=== PATIENT | male | born 1930 | race African-American/Black ===

== ENCOUNTER 2019-11-24 17:26 | Emergency (ER) | payer OTHER, BC ==
--- NOTE | 2019-11-24 18:05 | ER Document Report ---
ED General - General TRAVEL OUTSIDE OF THE [place] IN LAST 30 DAYS: No <JULIAN ALEXANDER - Last Filed: 11/24/19 19:54> <SAWYER REYEZ - Last Filed: 11/25/19 06:05> <RALPH VARELA - Last Filed: 11/25/19 11:52> - General Chief Complaint: Shortness Of Breath Stated Complaint: DIFFICULTY BREATHING Time Seen by Provider: 11/24/19 17:40 - HPI Notes: Patient is an 89-year-old male who presents emergency department for evaluation. He is a relatively poor historian. He states he was lying down and he became short of breath, nauseated. He fell to the ground. He had a near syncopal episode attempting to go to the bathroom. He states he had some chest pressure just prior to this near syncopal episode. This pain has resolved. He really cannot describe it to me any further. He states his breathing is improved as well. He denies any associated palpitations, vomiting. He states he has been taking his medications as prescribed. He states when he fell he did not hit his head. He denies any loss of consciousness. (JULIAN ALEXANDER) - Related Data Allergies/Adverse Reactions: No Known Allergies Allergy (Verified 11/24/19 17:39) Past Medical History - General Information source: Patient - Social History Smoking Status: Former Smoker Chew tobacco use (# tins/day): No Frequency of alcohol use: None Drug Abuse: None Family History: Reviewed & Not Pertinent Patient has suicidal ideation: No Patient has homicidal ideation: No - Past Medical History Cardiac Medical History: Reports: Hx Atrial Fibrillation, Hx Hypercholesterolemia, Hx Hypertension Pulmonary Medical History: Reports: Hx COPD Endocrine Medical History: Reports: Hx Diabetes Mellitus Type 2 Renal/ Medical History: Reports: Hx Benign Prostatic Hyperplasia Past Surgical History: Reports: Hx Appendectomy - Immunizations Immunizations up to date: Yes Hx Diphtheria, Pertussis, Tetanus Vaccination: Yes <JULIAN ALEXANDER - Last Filed: 11/24/19 19:54> Review of Systems - Review of Systems Constitutional: See HPI EENT: No symptoms reported Cardiovascular: See HPI Respiratory: See HPI Gastrointestinal: No symptoms reported Genitourinary: No symptoms reported Musculoskeletal: No symptoms reported Skin: No symptoms reported Neurological/Psychological: No symptoms reported <JULIAN ALEXANDER - Last Filed: 11/24/19 19:54> Physical Exam <JULIAN ALEXANDER - Last Filed: 11/24/19 19:54> - Vital signs Vitals: Temp Resp BP Pulse Ox 97.6 F 18 121/82 99 11/24/19 17:43 11/24/19 17:43 11/24/19 17:43 11/24/19 17:43 - Notes Notes: This is an 89-year-old male who appears his stated age in no acute distress. He is 3 L of oxygen per nasal cannula in place, is 97%. No accessory muscle use, not tachypneic. Vital signs reviewed, please refer to chart. Head is normocephalic, atraumatic. Pupils equal round, reactive to light. Neck is supple without meningismus. Heart is irregularly irregular. Lungs reveal mild rales in the bases. Abdomen is soft, nontender, normoactive bowel sounds throughout. Extremities without cyanosis, clubbing. Posterior calves are nontender. Peripheral pulses are equal. Skin is warm and dry. Patient is awake, alert, neurological exam is nonfocal. (CHERELLE ALEXANDERSOLOMON Perez) Course - Laboratory Result Diagrams: 11/24/19 18:15 11/24/19 18:15 - Diagnostic Test Radiology reviewed: Image reviewed, Reports reviewed - Transfer of Care Care transferred to following provider: Dr. Reyez <CHERELLE ALEXANDERSOLOMON Chris - Last Filed: 11/24/19 19:54> - Laboratory Result Diagrams: 11/25/19 02:37 11/24/19 18:15 <SAWYER REYEZ - Last Filed: 11/25/19 06:05> - Laboratory Result Diagrams: 11/25/19 02:37 11/24/19 18:15 <RALPH VARELA - Last Filed: 11/25/19 11:52> - Re-evaluation Re-evalutation: 11/24/19 18:55 Patient presents emergency department for evaluation. He developed shortness of breath, chest tightness, and nausea all at once. EMS was called when he had a near syncopal event. Upon arrival, patient was placed in the bed. During the course of his work-up, the patient had a large episode of emesis. He was medicated with Zofran. We will continue to monitor. 12/31/19 19:43 Patient continues to have emesis, despite medication with Zofran. He states he still feels short of breath. His EKG does show some changes when compared to prior study. He is a poor historian. I will contact internal medicine for possible admission. 11/24/19 19:47 Please note the earlier, with his early episode of emesis, I had been notified that the patient was possibly having seizure activity. I ordered the Ativan be pulled from the Pyxis. Upon evaluating the patient it was noted that he was not actually seizing, but was not tolerating vomiting well. Please note that Ativan was never administered. Patient's first troponin was negative. He continues to feel slightly short of breath. I spoke with Dr. Zarate. He was concerned about his continued nausea. He asked that a lipase to be added and a second troponin be added as well. These labs were ordered. At this time, care of this patient will be turned over to Dr. Reyez. Dr. Reyez asked that his EKG be repeated, and this order was placed as well. (JULIAN ALEXANDER) 11/25/19 04:40 Addendum given this patient at 830. Plan at that point was to repeat his troponin and lipase. Patient continued to have intermittent episodes of vomiting despite several doses of vomiting. I went in to reevaluate the patient and reviewed the chart. Patient reports he had a brief episode of tightness in his chest earlier today with some shortness of breath that resolved. Generalized weakness and fell to his knees with did not actually pass out. Following this he started having some abdominal pain nausea and vomiting said multiple episodes of vomiting since then. Said no fevers no diarrhea and no blood in the stools. Past medical history he has a history of diabetes and A. fib is on Xarelto denies any history of retention or no history of hypertension alcohol abuse no history of liver disease Reports his last dose of Xarelto was yesterday morning His exam his vital signs are noted no acute distress he is slightly dry mucous membranes chest is clear. Heart irregularly irregular with controlled ventricular rate. Abdomen reveals decreased breath sounds he slightly distended with some minimal diffuse tenderness throughout. Laboratory studies reviewed. LFTs were noted. Is got low platelets however we have no old laboratory studies on him EKG shows atrial fibrillation with some nonspecific ST wave changes repeat is unchanged CT is contacted by radiology regarding the CT. They report moderate homogeneous fluid throughout which may be a subacute hemorrhage or complex ascites as well as some patchy inflammation around the gallbladder ED patient has remained stable he was given IV fluids. 1 drop in blood pressure that responded came up to minutes later on repeat. He has been controlled. A Dennison catheter was inserted and he is got good urine output. Cultures were obtained he was started on Merrem empirically Also did discuss case with general surgery was seen the patient. He reviewed the CT and did not feel that patient had significant ascites felt the patient probably needed a medical admission for further evaluation. He did discuss case with hospitalist who felt that in light of the patient's age ascites and und erlying medical problems to be transferred to higher level of care working in interventional radiology and evaluated by GI I did talk to family about this. Recommended we transfer the patient to [facility] however they requested patient be transferred to [facility]. I contacted the transfer center there. They advised me they have no beds and place him on the list. Family was advised about this. They then requested fighting. Contacted the transfer center there accepted the patient (SAWYER REYEZ) - Vital Signs Vital signs: Temp Pulse Resp BP Pulse Ox 98.1 F 73 20 106/67 98 11/25/19 09:31 11/24/19 18:03 11/25/19 11:00 11/25/19 11:00 11/25/19 11:00 - Laboratory Laboratory results interpreted by me: 11/24/19 11/24/19 11/24/19 18:15 18:15 18:15 RBC 3.53 L Hgb 11.1 L Hct 33.1 L RDW 14.1 H Plt Count 148 L Lymph % (Auto) Absolute Neuts (auto) Seg Neutrophils % PT Creatinine 1.35 H Est GFR (MDRD) Non-Af 50 L Glucose 132 H AST 239 H NT-Pro-B Natriuret Pep 3330 H Total Protein 6.1 L Urine Protein Urine Blood Urine Urobilinogen 11/24/19 11/25/19 11/25/19 23:49 02:37 02:37 RBC 3.42 L Hgb 10.7 L Hct 31.9 L RDW 14.2 H Plt Count 148 L Lymph % (Auto) 9.6 L Absolute Neuts (auto) 8.4 H Seg Neutrophils % 83.6 H PT 16.5 H Creatinine Est GFR (MDRD) Non-Af Glucose AST NT-Pro-B Natriuret Pep Total Protein Urine Protein 100 H Urine Blood SMALL H Urine Urobilinogen 2.0 H - Diagnostic Test Radiology results interpreted by me: 11/24/19 18:55 Chest X-Ray 11/24/19 17:36 IMPRESSION: NO ACUTE FINDINGS. (JULIAN ALEXANDER) - EKG Interpretation by Me Additional EKG results interpreted by me: 11/24/19 18:57 Atrial fibrillation with a rate of 77 bpm. Left axis deviation. IVCD. Anterolateral T wave inversions, diffuse T wave flattening, concerning for possible ischemia. Positive changes from prior study performed in March 2015. (JULIAN ALEXANDER) Critical Care Note - Critical Care Note Total time excluding time spent on procedures (mins): 35 <SAWYER REYEZ - Last Filed: 11/25/19 06:05> Discharge <JULIAN ALEXANDER - Last Filed: 11/24/19 19:54> <SAWYER REYEZ - Last Filed: 11/25/19 06:05> <RALPH VARELA - Last Filed: 11/25/19 11:52> - Discharge Clinical Impression: Near syncope Chest pain Qualifiers: Chest pain type: unspecified Qualified Code(s): R07.9 - Chest pain, unspecified Nausea and vomiting Qualifiers: Vomiting type: unspecified Dyspnea Qualifiers: Dyspnea type: shortness of breath Qualified Code(s): R06.02 - Shortness of breath Condition: Stable Disposition: [facility]
--- NOTE | 2019-11-24 18:20 | RADIOLOGY REPORT (SQ) ---
EXAM DESCRIPTION: CHEST SINGLE VIEW COMPLETED DATE/TIME: 11/24/2019 6:02 pm REASON FOR STUDY: sob COMPARISON: 03/25/2015 TECHNIQUE: Single frontal radiographic view of the chest acquired. NUMBER OF VIEWS: One view. LIMITATIONS: None. FINDINGS: LUNGS AND PLEURA: No pneumothorax. Similar chronic interstitial changes -basilar scarring . No consolidation or pleural effusion. MEDIASTINUM AND HILAR STRUCTURES: Stable. HEART AND VASCULAR STRUCTURES: Stable. BONES: No acute findings. HARDWARE: None in the chest. OTHER: No other significant finding. IMPRESSION: NO ACUTE FINDINGS. TECHNICAL DOCUMENTATION: JOB ID: [id number] [employer]- All Rights Reserved Reading location - IP/workstation name: [email or web address]
[2019-11-24] MEDS ORDERED: LORAZEPAM INJ 2 MG/1 ML VIAL IV ONE (18:40)
[2019-11-24 18:41] LABS: ABSOLUTE BASOPHILS # (AUTO) 0.1 10^3/uL (0.0-0.2); ABSOLUTE EOSINOPHILS # (AUTO) 0.1 10^3/uL (0.0-0.6); ABSOLUTE MONOCYTES (AUTO) 0.6 10^3/uL (0.1-1.4); ABSOLUTE NEUT (AUTO) 3.5 10^3/uL (1.7-8.2); BASOPHILS % (AUTO) 1.1 % (0-2); EOSINOPHILS % (AUTO) 1.7 % (0-6); HEMATOCRIT 33.1 % (37.9-51.0); HEMOGLOBIN 11.1 g/dL (13.5-17.0); LYMPHOCYTES % (AUTO) 40.5 % (13-45); MEAN CORPUSCULAR HEMOGLOBIN 31.5 pg (27.0-33.4); MEAN CORPUSCULAR HGB CONC 33.6 g/dL (32.0-36.0); MEAN CORPUSCULAR VOLUME 94 fl (80-97); MONOCYTES % (AUTO) 8.7 % (3-13); PLATELET COUNT 148 10^3/uL (150-450); RED BLOOD COUNT 3.53 10^6/uL (4.35-5.55); RED CELL DISTRIBUTION WIDTH 14.1 % (11.5-14.0); TOTAL CELLS COUNTED % (AUTO) 100 %; WHITE BLOOD COUNT 7.3 10^3/uL (4.0-10.5)
[2019-11-24] MEDS ORDERED: ONDANSETRON HCL INJ/PF 4 MG/2 ML SDV IV ONE ×3 (18:48→20:54)
[2019-11-24 19:07] LABS: ALBUMIN 3.5 g/dL (3.5-5.0); ALKALINE PHOSPHATASE 45 U/L (38-126); ANION GAP 11 (5-19); ASPARTATE AMINO TRANSFERASE 239 U/L (17-59); BILIRUBIN,DIRECT 0.3 mg/dL (0.0-0.4); BILIRUBIN,TOTAL 0.5 mg/dL (0.2-1.3); BLOOD UREA NITROGEN 15 mg/dL (7-20); CALCIUM 9.3 mg/dL (8.4-10.2); CARBON DIOXIDE 26 mmol/L (22-30); CHLORIDE 104 mmol/L (98-107); GLUCOSE 132 mg/dL (75-110); POTASSIUM 3.6 mmol/L (3.6-5.0); TOTAL PROTEIN 6.1 g/dL (6.3-8.2)
--- NOTE | 2019-11-24 19:17 | EKG REPORT ---
SEVERITY:- ABNORMAL ECG - ATRIAL FIBRILLATION LAD, CONSIDER LEFT ANTERIOR FASCICULAR BLOCK BORDERLINE R WAVE PROGRESSION, ANTERIOR LEADS NONSPECIFIC T ABNORMALITIES, DIFFUSE LEADS : Confirmed by: Nixon Edmond MD 24-Nov-2019 19:17:12
[2019-11-24 19:20] LABS: NT PRO BNP 3330 pg/mL (<450); TROPONIN I < 0.012 ng/mL
[2019-11-24 20:43] LABS: A TYPE INFLUENZA AG POSITIVE (NEGATIVE); B INFLUENZA AG NEGATIVE (NEGATIVE)
[2019-11-24] MEDS ORDERED: NORMAL SALINE 500 ML IV ONE (20:56)
[2019-11-24] MEDS ORDERED: NORMAL SALINE 1000 ML 1,000 ML IV ONE (20:58)
--- NOTE | 2019-11-24 21:19 | EKG REPORT ---
SEVERITY:- ABNORMAL ECG - ATRIAL FIBRILLATION LAD, CONSIDER LEFT ANTERIOR FASCICULAR BLOCK CONSIDER ANTEROSEPTAL INFARCT NONSPECIFIC T ABNORMALITIES, LATERAL LEADS BORDERLINE PROLONGED QT INTERVAL : Confirmed by: Nixon Edmond MD 24-Nov-2019 21:18:58
[2019-11-24] MEDS ORDERED: OSELTAMIVIR PHOSPHATE 75 MG CAPSULE PO ONE (21:56)
[2019-11-25] MEDS ORDERED: NORMAL SALINE 500 ML IV ONE ×2 (00:13→05:29)
[2019-11-25] MEDS ORDERED: PROMETHAZINE HCL INJ 25 MG/1 ML VIAL IV ONE (00:14)
[2019-11-25 00:21] LABS: APPEARANCE,URINE CLOUDY; BILIRUBIN,URINE NEGATIVE (NEGATIVE); COLOR,URINE AMBER; GLUCOSE, URINE NEGATIVE (NEGATIVE); KETONES,URINE NEGATIVE (NEGATIVE); LEUKOCYTE ESTERASE,URINE NEGATIVE (NEGATIVE); NITRITE,URINE NEGATIVE (NEGATIVE); PROTEIN,URINE 100 mg/dL (NEGATIVE); URINE SPECIFIC GRAVITY 1.027
--- NOTE | 2019-11-25 01:56 | RADIOLOGY REPORT (SQ) ---
EXAM DESCRIPTION: CT ABDOMEN PELVIS WITH IV CONTRAST COMPLETED DATE/TME: 11/25/2019 00:14 CLINICAL HISTORY: 89 years Male, Abdominal pain Comparison:Mar 25 2015 Technique: Pre and post IV contrast. Coronal and sagittal reformat. This exam was performed according to our departmental dose-optimization program, which includes automated exposure control, adjustment of the mA and/or kV according to patient size and/or use of iterative reconstruction technique. [facility]: Dose Right [facility]: CareDose [facility]: Dose Right [facility]: Teradose 4D [facility]: Silentium LIMITATIONS: Arm position. Findings: Moderate homogeneous free fluid, 27-HU throughout the abdomen may indicate subacute hemorrhage or complex ascites including under the right hemidiaphragm, left paracolic space, and anterior lower abdomen. Coronary arterial calcification. Atherosclerotic vascular disease. Renal arterial calcification. Degenerative disc disease. Grade I L4 anterolisthesis. Moderate bilateral inguinal fat only hernia. Stool retention. Moderate subpleural cyst partially imaged. Atelectasis-scar. Colonic diverticulosis. 2.8 x 2.8 cm infrarenal abdominal aortic aneurysm. Recommend follow-up every three years. Moderate fat inflammation at the anteromedial aspect of the gallbladder, nonspecific. Differential etiologies include cholecystitis. No pneumoperitoneum. No evidence of appendicitis. Appendix not definitively discerned/appendectomy. No bowel obstruction. No hydronephrosis or hydroureter. No renal/ureteral stone. No evidence of abdominal aortic aneurysm. Inferior thorax, liver, pancreas, spleen, adrenals, renal system, gastrointestinal tract, pelvic organs, lymphatics, vasculature, and musculoskeleton appear otherwise unremarkable. IMPRESSION: 1. Moderate homogeneous free fluid, 27-HU throughout the abdomen may indicate subacute hemorrhage or complex ascites including under the right hemidiaphragm, left paracolic space, and anterior lower abdomen. 2. 2.8 x 2.8 cm infrarenal abdominal aortic aneurysm. Recommend follow-up every three years. 3. Moderate fat inflammation at the anteromedial aspect of the gallbladder, nonspecific. Differential etiologies include cholecystitis.
[2019-11-25] MEDS ORDERED: MEROPENEM 1 GM VIAL IV ONE (02:14)
[2019-11-25 02:57] LABS: ABSOLUTE BASOPHILS # (AUTO) 0.1 10^3/uL (0.0-0.2); ABSOLUTE MONOCYTES (AUTO) 0.6 10^3/uL (0.1-1.4); ABSOLUTE NEUT (AUTO) 8.4 10^3/uL (1.7-8.2); BASOPHILS % (AUTO) 0.6 % (0-2); EOSINOPHILS % (AUTO) 0.1 % (0-6); HEMATOCRIT 31.9 % (37.9-51.0); HEMOGLOBIN 10.7 g/dL (13.5-17.0); LYMPHOCYTES % (AUTO) 9.6 % (13-45); MEAN CORPUSCULAR HEMOGLOBIN 31.2 pg (27.0-33.4); MEAN CORPUSCULAR HGB CONC 33.5 g/dL (32.0-36.0); MEAN CORPUSCULAR VOLUME 93 fl (80-97); MONOCYTES % (AUTO) 6.1 % (3-13); PLATELET COUNT 148 10^3/uL (150-450); RED BLOOD COUNT 3.42 10^6/uL (4.35-5.55); RED CELL DISTRIBUTION WIDTH 14.2 % (11.5-14.0); SEGMENTED NEUTROPHILS % (AUTO) 83.6 % (42-78); TOTAL CELLS COUNTED % (AUTO) 100 %; WHITE BLOOD COUNT 10.1 10^3/uL (4.0-10.5)
[2019-11-25 03:16] LABS: INTERNATIONAL RATION (INR) 1.32; PROTHROMBIN TIME 16.5 SEC (11.4-15.4)
--- NOTE | 2019-11-25 08:21 | PDOC CONSULTATION ---
Consultation Consult Date: 11/25/19 Attending physician:: SAWYER REYEZ Provider Consulted: MARIA ANTONIA SOTO History of Present Illness Admission Date/PCP: an 89-year-old male who presents emergency department for evaluation. He is a relatively poor historian. He states he was lying down and he became short of breath, nauseated. He fell to the ground. He had a near syncopal episode attempting to go to the bathroom. He states he had some chest pressure just prior to this near syncopal episode. This pain has resolved. He really cannot describe it to me any further. He states his breathing is improved as well. He denies any associated palpitations, vomiting. He states he has been taking his medications as prescribed. He states when he fell he did not hit his head. He denies any loss of consciousness. Upon further questioning the family they state the patient did not fall to the ground. He has been in his usual state of health until he developed the chest pressure and the nausea vomiting. CT scan was obtained emergency room physician and I was called because of some free fluid noted above the right lobe of the liver as well as in thein the left paracolic gutter. History of Present Illness: PETRESON FARIAS is a 89 year old male Past Medical History Cardiac Medical History: Reports: Atrial Fibrillation, Hyperlipidema, Hypertension Pulmonary Medical History: Reports: Chronic Obstructive Pulmonary Disease (COPD) Endocrine Medical History: Reports: Diabetes Mellitus Type 2 Past Surgical History Past Surgical History: Reports: Appendectomy Social History Smoking Status: Former Smoker Electronic Cigarette use?: No Family History Family History: Reviewed & Not Pertinent Parental Family History Reviewed: No Children Family History Reviewed: NA Sibling(s) Family History Reviewed.: NA Medication/Allergy Home Medications: Albuterol Sulfate [Proair HFA Inhalation Aerosol 8.5 gm MDI] 1 puff PO DAILY 11/24/19 Apixaban [Eliquis 5 mg Tablet] 5 mg PO BID 11/24/19 Finasteride [Proscar 5 mg Tablet] 5 mg PO DAILY 11/24/19 Meloxicam [Mobic] 7.5 mg PO DAILY 11/24/19 Metformin HCl [Metformin ER Gastric] 500 mg PO QHS 11/24/19 Allergies/Adverse Reactions: No Known Allergies Allergy (Verified 11/24/19 17:39) Review of Systems Constitutional: PRESENT: fatigue Ears: ABSENT: hearing changes Nose, Mouth, and Throat: ABSENT: as per HPI, headache(s), mouth pain, sore throat, vertigo, other Breasts: ABSENT: as per HPI, other Cardiovascular: PRESENT: dyspnea on exertion Respiratory: ABSENT: as per HPI, cough, dyspnea, hemoptysis, sputum, other Gastrointestinal: PRESENT: abdominal pain, constipation, nausea, vomiting Genitourinary: ABSENT: as per HPI, difficulty urinating, dysuria, hematuria, no cturia, other Musculoskeletal: ABSENT: as per HPI, back pain, deformity, joint swelling, muscle weakness, other Integumentary: ABSENT: as per HPI, diaphoresis, erythema, lesions, pruritus, rash, wounds, other Neurological: ABSENT: as per HPI, abnormal gait, abnormal movements, abnormal speech, confusion, convulsions, dizziness, focal weakness, frequent falls, lack of coordination, memory loss, numbness, paresthesias, restless legs, syncope, tingling, tremor(s), vertigo, weakness, other Psychiatric: ABSENT: as per HPI, anxiety, depression, hallucinations, homidical ideation, suicidal ideation, other Endocrine: ABSENT: as per HPI, cold intolerance, flushing, heat intolerance, menstrual abnormalities, polydipsia, polyphagia, polyuria, other Hematologic/Lymphatic: ABSENT: as per HPI, easy bleeding, easy bruising, lymphadenopathy, other Allergic/Immunologic: ABSENT: as per HPI, seasonal rhinorrhea, other Physical Exam Vital Signs: Temp Pulse Resp BP Pulse Ox 97.6 F 73 22 H 104/73 100 11/24/19 18:03 11/24/19 18:03 11/25/19 04:21 11/25/19 04:21 11/25/19 04:21 Intake & Output 11/24/19 11/25/19 11/26/19 06:59 06:59 06:59 Intake Total 1000 1000 Balance 1000 1000 Weight 100.5 kg General appearance: PRESENT: mild distress Head exam: PRESENT: atraumatic Eye exam: PRESENT: EOMI Ear exam: PRESENT: normal external ear exam Mouth exam: PRESENT: dry mucosa Teeth exam: PRESENT: poor dentation Neck exam: PRESENT: full ROM Respiratory exam: PRESENT: clear to auscultation georgette, unlabored Cardiovascular exam: PRESENT: irregular rhythm, tachycardia, other Pulses: PRESENT: normal femoral pulses, normal dorsalis pedis pul Vascular exam: PRESENT: normal capillary refill Breast: PRESENT: Normal - Abdomen is softly distended with minimal generalized tenderness to palpation there is no rebound tenderness no peritoneal irritation GI/Abdominal exam: PRESENT: other - Abdomen is obese softly distended minimal tenderness in all 4 quadrants to palpation but no rebound tenderness or peritonitis Rectal exam: PRESENT: deferred Extremities exam: PRESENT: +2 edema Musculoskeletal exam: PRESENT: full ROM Neurological exam: PRESENT: alert, awake, oriented to person, oriented to place Psychiatric exam: PRESENT: appropriate affect Skin exam: PRESENT: dry Results Laboratory Results: 11/25/19 02:37 11/24/19 18:15 11/24/19 11/24/19 11/24/19 18:15 18:15 18:15 WBC 7.3 RBC 3.53 L Hgb 11.1 L Hct 33.1 L MCV 94 MCH 31.5 MCHC 33.6 RDW 14.1 H Plt Count 148 L Seg Neutrophils % 48.0 Sodium 140.9 Potassium 3.6 Chloride 104 Carbon Dioxide 26 Anion Gap 11 BUN 15 Creatinine 1.35 H Est GFR ( Amer) > 60 Glucose 132 H Calcium 9.3 Total Bilirubin 0.5 AST 239 H Alkaline Phosphatase 45 Total Protein 6.1 L Albumin 3.5 Lipase 91.9 Urine Color Urine Appearance Urine pH Ur Specific [place] Urine Protein Urine Glucose (UA) Urine Ketones Urine Blood Urine Nitrite Ur Leukocyte Esterase Urine WBC (Auto) Urine RBC (Auto) 11/24/19 11/25/19 23:49 02:37 WBC 10.1 RBC 3.42 L Hgb 10.7 L Hct 31.9 L MCV 93 MCH 31.2 MCHC 33.5 RDW 14.2 H Plt Count 148 L Seg Neutrophils % 83.6 H Sodium Potassium Chloride Carbon Dioxide Anion Gap BUN Creatinine Est GFR ( Amer) Glucose Calcium Total Bilirubin AST Alkaline Phosphatase Total Protein Albumin Lipase Urine Color COTY Urine Appearance CLOUDY Urine pH 5.0 Ur Specific [place] 1.027 Urine Protein 100 H Urine Glucose (UA) NEGATIVE Urine Ketones NEGATIVE Urine Blood SMALL H Urine Nitrite NEGATIVE Ur Leukocyte Esterase NEGATIVE Urine WBC (Auto) 5 Urine RBC (Auto) 4 11/24/19 11/24/19 18:15 21:22 Troponin I < 0.012 0.012 NT-Pro-B Natriuret Pep 3330 H Impressions: Chest X-Ray 11/24/19 17:36 IMPRESSION: NO ACUTE FINDINGS. Abdomen/Pelvis CT 11/25/19 00:14 IMPRESSION: 1. Moderate homogeneous free fluid, 27-HU throughout the abdomen may indicate subacute hemorrhage or complex ascites including under the right hemidiaphragm, left paracolic space, and anterior lower abdomen. 2. 2.8 x 2.8 cm infrarenal abdominal aortic aneurysm. Recommend follow-up every three years. 3. Moderate fat inflammation at the anteromedial aspect of the gallbladder, nonspecific. Differential etiologies include cholecystitis. Assessment & Plan - Diagnosis (1) Nausea and vomiting Qualifiers: Vomiting type: unspecified - Plan Summary Plan Summary: Impression 89-year-old male presents to the emergency room with increased nausea and vomiting weakness and had a syncopal episode. CT scan was obtained which showed some free fluid above the right lobe of the liver as well as in the left paracolic gutter and some questionable stranding around the gallbladder. As well as a large amount of stool in the rectal vault and descending colon consistent with chronic constipation Patient is on Eliquis for atrial fibrillation as well as metformin and meloxicam. Currently currently patient is stable his abdominal pain is minimal after a large bowel movement in the emergency room. Because of his atrial fibrillation and the fact that he is on Eliquis plans are being made for his transfer to a tertiary center. Diagnostic possibilities include cholecystitis however there are no gallstones and no significant thickening on CT scan of the gallbladder Hemoperitoneum because of the fact that he has been on Eliquis and had some significant retching and vomiting. Recommendations This point patient should be admitted to the hospital for observation would trend his hemoglobin and hematocrit He does not have an acute abdomen at this point does not require immediate surgical exploration. Patient should have an abdominal ultrasound to rule out gallstones versus pericholecystic thickening consider HIDA scan. If vomiting continues would consider NG suction. Internal medicine has consulted with the emergency room and suggested transfer to the tertiary care center. If this does not occur please reconsult surgery as necessary
--- NOTE | 2019-11-25 09:36 | RADIOLOGY REPORT (SQ) ---
EXAM DESCRIPTION: U/S ABDOMEN COMPLETE W/DOPPLER COMPLETED DATE/TIME: 11/25/2019 9:22 am REASON FOR STUDY: possible cholecystitis, complex fluid on CT COMPARISON: CT dated 11/25/2019. TECHNIQUE: Dynamic and static grayscale images acquired of the abdomen and recorded on PACS. Additio nal selected color Doppler and spectral images recorded. Note: Exam does not meet criteria for a complete doppler/duplex scan LIMITATIONS: Study limited due to acoustical interference from fat or from air in the bowel. FINDINGS: PANCREAS: Poorly seen secondary to acoustical interference from fat or from air in the bow el. No visualized masses. Duct normal caliber as seen. LIVER: Echotexture is coarse with increased echogenicity consistent with fatty infiltration. LIVER VASCULATURE: Normal directional flow of the main portal vein and hepatic veins. GALLBLADDER: No stones. Normal wall thickness. Trace pericholecystic fluid. ULTRASOUND-DETECTED LEE'S SIGN: Negative. INTRAHEPATIC DUCTS AND COMMON DUCT: CBD and intrahepatic ducts normal caliber. No filling defects. INFERIOR VENA CAVA: Normal flow. AORTA: No aneurysm. RIGHT KIDNEY: Normal size. Normal echogenicity. No solid or suspicious masses. No hydronephrosis. No calcifications. LEFT KIDNEY: Normal size. Normal echogenicity. No solid or suspicious masses. No hydronephrosis. No calcifications. SPLEEN:Normal size. No solid masses. PERITONEAL AND PLEURAL SPACES: Free fluid in the right upper quadrant. OTHER: No other significant finding. IMPRESSION: 1. TRACE PERICHOLECYSTIC FLUID. NO GALLSTONES OR OTHER SIGNIFICANT FINDINGS IN THE GALLBLADDER. THE RE IS FREE FLUID IN THE RIGHT UPPER QUADRANT. 2. FATTY INFILTRATION OF THE LIVER. NO OTHER SIGNIFICANT FINDING IN THE VISUALIZED ABDOMEN. TECHNICAL DOCUMENTATION: JOB ID: [id number] All Rights Reserved Reading location - IP/workstation name: [email or web address]
[2019-11-25] MEDS ORDERED: OSELTAMIVIR PHOSPHATE 75 MG CAPSULE PO SCH (10:00)
[2019-11-25] MEDS: MEROPENEM 1 GM VIAL IV SCH ×2 (10:33→15:37)
[2019-11-25 12:30] LABS: ABSOLUTE BASOPHILS # (AUTO) 0.1 10^3/uL (0.0-0.2); ABSOLUTE LYMPHOCYTES (AUTO) 1.4 10^3/uL (0.5-4.7); ABSOLUTE MONOCYTES (AUTO) 0.7 10^3/uL (0.1-1.4); ABSOLUTE NEUT (AUTO) 5.7 10^3/uL (1.7-8.2); EOSINOPHILS % (AUTO) 0.5 % (0-6); HEMATOCRIT 27.8 % (37.9-51.0); HEMOGLOBIN 9.3 g/dL (13.5-17.0); LYMPHOCYTES % (AUTO) 17.7 % (13-45); MEAN CORPUSCULAR HEMOGLOBIN 31.2 pg (27.0-33.4); MEAN CORPUSCULAR HGB CONC 33.6 g/dL (32.0-36.0); MEAN CORPUSCULAR VOLUME 93 fl (80-97); MONOCYTES % (AUTO) 8.4 % (3-13); PLATELET COUNT 131 10^3/uL (150-450); RED CELL DISTRIBUTION WIDTH 14.1 % (11.5-14.0); SEGMENTED NEUTROPHILS % (AUTO) 72.4 % (42-78); TOTAL CELLS COUNTED % (AUTO) 100 %; WHITE BLOOD COUNT 7.9 10^3/uL (4.0-10.5)
[2019-11-25 12:48] LABS: ALBUMIN 2.4 g/dL (3.5-5.0); ALKALINE PHOSPHATASE 37 U/L (38-126); ANION GAP 5 (5-19); ASPARTATE AMINO TRANSFERASE 111 U/L (17-59); BILIRUBIN,DIRECT 0.1 mg/dL (0.0-0.4); BILIRUBIN,TOTAL 0.5 mg/dL (0.2-1.3); BLOOD UREA NITROGEN 13 mg/dL (7-20); CARBON DIOXIDE 23 mmol/L (22-30); CHLORIDE 114 mmol/L (98-107); GLUCOSE 77 mg/dL (75-110); POTASSIUM 3.4 mmol/L (3.6-5.0); TOTAL PROTEIN 4.6 g/dL (6.3-8.2)
[2019-11-25] MEDS ORDERED: FENTANYL CITRATE INJ/PF 100 MCG/2 ML AMPUL IV ONE (12:56)
[2019-11-25] MEDS ORDERED: ONDANSETRON HCL INJ/PF 4 MG/2 ML SDV IV ONE (12:56)
[2019-11-25] MEDS ORDERED: DEXTROSE 5%-LACTATED RINGERS 1,000 ML IV ONE (13:01)
--- NOTE | 2019-11-25 13:19 | ER Document Report ---
Doctor's Note Notes: 11/25/19 13:12 This 89-year-old male patient with a history of atrial fibrillation on Eliquis, came to the emergency room yesterday afternoon following a near syncopal episode going to the restroom. At that time he had become short of breath with nauseousness. He did test positive for influenza A. Apparently throughout the night he had large amount of vomiting, which prompted a CT scan with IV contrast showing moderate free fluid throughout the abdomen which was felt to be possibly blood or complex ascites. There was some inflammation in the anterior medial aspect of the gallbladder, so a gallbladder ultrasound was done which showed trace pericholecystic fluid and right upper quadrant free fluid. The patient's first hemoglobin at 1815 yesterday was 11.1, repeat at 37 this morning was 10.7 At this time patient is complaining of some abdominal pain, he had not received any pain medication since his arrival yesterday afternoon. His son is here now to help me clarify more of the history about what did transpired during the night. His son reports that he had some abdominal distention, abdominal pain, and vomited multiple times. He states the vomitus was initially brownish in color, and toward the end look grossly bloody. At this time the patient has been on a waiting list for [facility] for several ho urs. I just repeated the patient's lab work and his hemoglobin has now dropped to 9.3, his Chem-12 shows a slight decrease in potassium (he is normally on potassium supplements), and his blood sugar has decreased to 77. His albumin has decreased from 3.5-2.4, protein is decreased from 6.1-4.6, and calcium has decreased from 9.3-7.0. His abdomen is diffusely tender now, he does have active bowel sounds. It does seem to be a little more painful in the lower abdomen, and he is laying on the stretcher with a slight elevation to the head of the bed which makes me suspicious for the abdominal fluid actually being blood. 11/25/19 17:39 I did discuss the case at length with the radiologist who had recommended a CT GI bleeding study. This was ordered. It took 3 hours to get it done. The scan was read as most likely hemoperitoneum with liver laceration. The case was discussed with the trauma service at [facility]. The patient will be an ED to ED transfer for further evaluation to see which particular service she should be admitted to. Due to the likely ongoing blood loss throughout the afternoon, he will be transfused 2 units of packed RBCs to stay ahead of any blood loss issues.
[2019-11-25] MEDS ORDERED: NORMAL SALINE 250 ML IV PRN (16:54)
--- NOTE | 2019-11-25 17:12 | RADIOLOGY REPORT (SQ) ---
EXAM DESCRIPTION: CT ABD/PELVIS COMBO COMPLETED DATE/TIME: 11/25/2019 4:51 pm REASON FOR STUDY: IV w w/o COMPARISON: 11/25/2019 study from earlier today, current study is performed because of worsening clini akosua status and dropping hematocrit. TECHNIQUE: CT scan of the abdomen and pelvis performed with and without intravenous contrast. Images reviewed with lung, soft tissue, and bone windows. Reconstructed coronal and sagittal MPR images rev iewed. Delayed images for evaluation of possible gastrointestinal hemorrhage. All images stored on PA CS. All CT scanners at this facility use dose modulation, iterative reconstruction, and/or weight based d osing when appropriate to reduce radiation dose to as low as reasonably achievable (ALARA). [facility]: Dose Right [facility]: CareDose [facility]: Dose Right [facility]: Teradose 4D [facility]: Social Tools CONTRAST TYPE AND DOSE: contrast/concentration: Isovue 350.00 mg/ml; Total Contrast Delivered: 99.0 ml; Total Saline Delivered: 42.8 ml RENAL FUNCTION: Creatinine 1.0 RADIATION DOSE: CT Rad equipment meets quality standard of care and radiation dose reduction techniq ues were employed. CTDIvol: 16.6 - 60.5 mGy. DLP: 3972 mGy-cm.. LIMITATIONS: None. FINDINGS: NON-CONTRASTED IMAGING: Allowing for mild contrast in genitourinary system from prior IV c ontrasted study earlier, as well as excreted contrast into the gallbladder, no calcifications of note . Atherosclerotic aorta. POST-CONTRASTED IMAGING: LOWER CHEST: Paraseptal emphysema. There may be some subtle fluid in the dependent bulla in the righ t lower lobe. Motion artifact and scar. LIVER: Slightly heterogeneous low density close to the gallbladder fossa may be artifact. Not typica l in appearance for laceration, but this is in the differential. Dense perihepatic fluid once again noted. Probably progressive. SPLEEN: No overt laceration. Mild dense adjacent perisplenic fluid. PANCREAS: No masses. No significant calcifications. No adjacent inflammation or peripancreatic fluid collections. Pancreatic duct not dilated. GALLBLADDER: No identified stones by CT criteria. No inflammatory changes to suggest cholecystitis. ADRENAL GLANDS: No significant masses or asymmetry. RIGHT KIDNEY AND URETER: No solid masses. No significant calcification. No hydronephrosis or hydroure ter. LEFT KIDNEY AND URETER: No solid masses. No significant calcification. No hydronephrosis or hydrouret er. AORTA AND VESSELS: Heavily atherosclerotic. No scarlet aneurysm or dissection. Branch arteries are al so heavily calcified but generally patent. No venous clot. RETROPERITONEUM: No retroperitoneal hematoma or mass. BOWEL AND PERITONEAL CAVITY: No active extravasated in contrast into bowel lumen to suggest a focus o f GI bleeding. Probable internal hemorrhoids. Dense ascites throughout the abdomen and pelvis has p rogressed compared to study from earlier today. Hounsfield units of this fluid are generally in the 30s. This is concerning for pneumoperitoneum. No abnormal gas. No bowel obstruction evident. APPENDIX: Not reliably identified. No appendicitis suggested. PELVIS: Dense ascites as above. Dennison catheter decompresses the bladder. ABDOMINAL WALL: No masses. No hernias. BONES: No significant or acute findings. OTHER: No other significant finding. IMPRESSION: 1. Progressive complicated ascites worrisome for pneumoperitoneum particularly given dropping hemoglo bin values. Mildly heterogeneous liver parenchyma near the gallbladder fossa. Unclear if this is ar tifact or could be related to laceration. Other solid organs look generally intact. No discrete vis cus perforation. No active GI bleeding focus identified within bowel. Findings of pneumoperitoneum and suspicion for potential solid organ laceration were discussed with Aleena Luz in the emergency department shortly after the study was performed. TECHNICAL DOCUMENTATION: JOB ID: [id number] Quality ID # [id number]: Final reports with documentation of one or more dose reduction techniques (e.g., Au tomated exposure control, adjustment of the mA and/or kV according to patient size, use of iterative reconstruction technique) 2010 [email or web address]- All Rights Reserved Reading location - IP/workstation name: [email or web address]
[2019-11-25] MEDS ORDERED: CALCIUM GLUCONATE 1000 MG/10 ML INJ IV ONE (17:41)
[2019-11-25 18:06] VITALS: BP 112/72
== END 2019-11-25 18:31 | disposition short-term general hospital (02) ==
LOC: ER 17:26
DX: S36.899A Unspecified injury of other intra-abdominal organs, initial encounter (principal); S36.113A Laceration of liver, unspecified degree, initial encounter; D64.9 Anemia, unspecified; R06.02 Shortness of breath; R11.2 Nausea with vomiting, unspecified; R07.9 Chest pain, unspecified; R42 Dizziness and giddiness; J11.1 Influenza due to unidentified influenza virus with other respiratory manifestations; K92.2 Gastrointestinal hemorrhage, unspecified; E83.51 Hypocalcemia; W19.XXXA Unspecified fall, initial encounter; Z87.891 Personal history of nicotine dependence; I10 Essential (primary) hypertension; J44.9 Chronic obstructive pulmonary disease, unspecified; E11.9 Type 2 diabetes mellitus without complications
CPT/HCPCS: 93005; 96376; 99291; 99292; 96361; 96374; 96375; 86900; 86901; 36415; 87040; 36430; 86850; 83605; 83690; 83735; 85025; 85610; 80053; 81001; 84484; 86920; 87804; 83880; 71045; 76700; 93976; 74177; 74178; 93010; P9016; J0610; J3010; J2550; A9270 ×2; J2405 ×2; J7121; J7030; J7050; J7040 ×2; J2185; J3490